=== PATIENT | female | born 1995 | race Caucasian/White ===

== ENCOUNTER 2022-07-28 05:55 | Inpatient (IN) | payer OTHER, MEDICAID, SELFPAY ==
[2022-07-28] VITALS (142 sets, daily range): BP systolic 68–135; BP diastolic 32–89; PULSE 30–172; RESP 18; TEMP 36.5–37.3; O2SAT 75–100; BMI 35.6
--- NOTE | 2022-07-28 05:55 | LDADM ---
This patient, Merced Peña, was admitted to Labor/Delivery/Recovery 108 on 07/28/22 at 05:55. Plans for labor, pain management and were discussed with patient. Patient/family oriented to hospital policies and general routines including ID bracelet, bed and alarms, visiting hours, pain management, procedures, bathroom and other care routines, personal items, smoking policy, room service/diet and guest tray routines, security routines, and visiting hours. Patient/Family are encouraged to report perceived risks to care and to ask questions if they do not understand what they are told or what they should do. See OBIX for further documentation.
[2022-07-28 06:56] LABS: Basophils Absolute Auto 0.1 K/mm3 (0.0-0.1); Basophils Percent Auto 0.4 % (0.2-1.2); Eosinophils Absolute Auto 0.1 K/mm3 (0-0.3); Eosinophils Percent Auto 0.8 % (0-4.4); Hematocrit 34.3 % (37.0-47.0); Immature Granulocyte Absolute 0.22 K/mm3 (0.00-0.031); Immature Granulocyte Percent A 1.6 % (0-0.5); Lymphocytes Absolute Auto 1.66 K/mm3 (0.9-3.2); Lymphocytes Percent Auto 11.9 % (18.3-44.2); Mean Corpuscular HGB Conc 32.1 g/dl (32-36); Mean Corpuscular Hemoglobin 27.8 pg (26-34); Mean Corpuscular Volume 86.6 fl (80-100); Mean Platelet Volume 10.3 fl (7.4-10.4); Monocytes Absolute Auto 0.9 K/mm3 (0.1-0.6); Monocytes Percent Auto 6.7 % (2.6-8.5); Neutrophils Percent Auto 78.6 % (45.5-73.1); Platelet Count Result 231 k/mm3 (150-375); Red Blood Count 3.96 M/mm3 (4.2-5.4); Red Cell Distribution Width 13.9 % (11.5-14.5)
[2022-07-28] MEDS: LACTATED RINGERS 1,000 ML 125 ML IV CONT ×3 (07:01→11:12)
[2022-07-28] MEDS: OXYTOCIN 30 UNITS/NS 500 ML 30 UNITS/500 ML BAG IV CONT (07:03)
--- NOTE | 2022-07-28 07:21 | WPDOBADMIT ---
Obstetrics - Admit Note Admission Note: record reviewed. No pertinent additions to the history and/or any subsequent changes in the physical findings that are not consistent with the expected course of the were found. IOL for cholestasis at 37 weeks, AROM small amount of clear odorless fluid, SVE /-2 Additions to the history and/or subsequent changes in the physical findings follow. None.
--- NOTE | 2022-07-28 10:05 | WPDANESEPPF ---
Anes - Initial Pre Proc Eval Date/Time: 07/28/22 10:05 Surgeon: Gorge Leger MD Pre Op Diagnosis: Induction of Labor Patient Data Age: 27 Gender: F Height: 1.68 m Weight: 100 kg Last Vital Signs Temp 36.6 C 07/28/22 09:46 Pulse 93 07/28/22 10:00 BP 117/65 07/28/22 10:00 O2 Del Method Room Air 07/28/22 07:38 Allergies Allergy/AdvReac Type Severity Reaction Status Date / Time No Known Allergies Allergy Verified 07/21/22 13:39 Home Medications Medication Instructions Recorded Confirmed Type prenat.vits,danyell,quv-uadb-zejru 1 tablet PO HS 07/21/22 07/21/22 History ursodiol 300 mg capsule 300 mg PO BID 07/21/22 07/21/22 History Laboratory Tests 07/28/22 07/28/22 07/28/22 06:44 06:44 06:44 WBC 14.0 K/mm3 H K/mm3 (4.5-10.0) RBC 3.96 M/mm3 L M/mm3 (4.2-5.4) Hgb 11.0 g/dL L g/dL (12.0-15.0) Hct 34.3 % L % (37.0-47.0) MCV 86.6 fl fl (80-100) MCH 27.8 pg pg (26-34) MCHC 32.1 g/dl g/dl (32-36) RDW 13.9 % % (11.5-14.5) Plt Count 231 k/mm3 k/mm3 (150-375) MPV 10.3 fl fl (7.4-10.4) Immature Gran % (Auto) 1.6 % H % (0-0.5) Neut % (Auto) 78.6 % H % (45.5-73.1) Lymph % (Auto) 11.9 % L % (18.3-44.2) Lane % (Auto) 6.7 % % (2.6-8.5) Eos % (Auto) 0.8 % % (0-4.4) Baso % (Auto) 0.4 % % (0.2-1.2) Lymph # (Auto) 1.66 K/mm3 K/mm3 (0.9-3.2) Lane # (Auto) 0.9 K/mm3 H K/mm3 (0.1-0.6) Eos # (Auto) 0.1 K/mm3 K/mm3 (0-0.3) Baso # (Auto) 0.1 K/mm3 K/mm3 (0.0-0.1) Abs Immat Gran (auto) 0.22 K/mm3 H K/mm3 (0.00-0.031) Absolute Neuts (auto) 11.0 K/mm3 H K/mm3 (1.3-6.7) Absolute Nucleated RBC 0.0 K/mm3 K/mm3 (0.0-0.012) Nucleated RBC % 0.0 % % (0.0-0.2) RPR Pending Blood Type O Positive Antibody Screen Negative Patient hx anesthesia problems: none Family hx anesthesia problems: none Results Review: All pre-operative results and documents have been reviewed as part of the pre-operative evaluation. [facility] Family History Family History (Updated 07/21/22 @ 13:42 by Doris Sharma RN) Other Patient denies significant medical history Social History Social History Smoking status: Never smoker Substance use: never Spiritual care concerns: No Anes - Eval Final PreProcedure Day of Procedure 07/28/22 10:05 Patient weight: overweight Heart: regular rate and rhythm Lungs: clear to auscultation and normal air movement Airway: Mallampati scale class II Neurological: alert and oriented Last oral intake: >/= 8 hours ASA classification: II Emergent: no Anesthetic plan: proceed Anesthesia type and monitoring: regional epidural Results Review: All pre-operative results and documents have been reviewed as part of the pre-operative evaluation. Informed Consent: The patient's anesthetic plan and its attendant risks and benefits were discussed with the patient/family/POA. Questions were solicited and answers provided to the satisfaction of the patient/family/POA.
--- NOTE | 2022-07-28 17:03 | P.PCNOB_ITS ---
OB - Delivery Note Procedure Delivery date: 07/28/22 Procedure: vaginal delivery Events: Other (cholestasis) Induction method: AROM and Per Pitocin Protocol Delivery monitor: External FHT, External Uterine and Internal Uterine Route of delivery: Episiotomy description: None Laceration Description: None Specimen: Yes Quantitative Blood Loss (ml): 125 Disposition: Floor [place] Baby Date of : 07/28/22 Time of : 16:52 Weeks of gestation at delivery: 37 Weight (pounds): 6 Weight (ounces): 7 presentation: vertex position: Right Occiput Anterior Placenta delivery description: Spontaneous Cord Vessel Description: 3 Vessels, Clamped/Cut and Around Extremity (foot x 1 tight, loosened) score one minute: 8 score five minutes: 9 Narrative: mother and baby skin to skin in stable condition
[2022-07-28 17:12] LABS: Rapid Plasma Reagin Non-Reactive (NonReactive)
[2022-07-28] MEDS: ACETAMINOPHEN 325 MG TABLET 650 MG PO (18:05)
[2022-07-28] MEDS: WITCH HAZEL 40 PADS 1 PAD TOPICAL (19:32)
--- NOTE | 2022-07-28 20:00 | OBPPTRN ---
Patient transferred to post room # 282 via ( wheelchair ). Support person present. Oriented to unit, room, information board, rooming in, admission packet and security measures. Patient verbalizes understanding.
[2022-07-28] MEDS: IBUPROFEN 600 MG TABLET PO (20:14)
[2022-07-29] VITALS: BP 126/78; PULSE 92; RESP 18; TEMP 36.8; O2SAT 100
[2022-07-29] MEDS: ACETAMINOPHEN 325 MG TABLET 650 MG PO (03:36)
[2022-07-29 03:49] LABS: Hematocrit 32.2 % (37.0-47.0); Hemoglobin 10.3 g/dL (12.0-15.0)
[2022-07-29 04:00] VITALS: BP 126/78; PULSE 92; RESP 18; TEMP 36.3; O2SAT 100
[2022-07-29 06:46] VITALS: BP 117/78; PULSE 94; RESP 18; TEMP 36.3; O2SAT 100
[2022-07-29 06:48] VITALS: PULSE 94; RESP 18; O2SAT 100
[2022-07-29] MEDS: ursodioL 300 MG CAPSULE PO (07:07)
[2022-07-29] MEDS: IBUPROFEN 600 MG TABLET PO (07:07)
[2022-07-29] MEDS: MULTIVIT/MIN/PREN/FOL AC/IRON TABLET 1 TAB PO (07:07)
--- NOTE | 2022-07-29 08:16 | PM.OBPNVD ---
OB - PN: Subj Subjective Date/time seen: 07/29/22 08:16 Patient comments: no complaints, pain well controlled, incisional pain, tolerating diet and flatus present OB - PN: Obj Data Labs CBC & Chem 7: 07/29/22 03:43 Labs: Laboratory Results - last 24 hr 07/28/22 07/29/22 06:44 03:43 Hgb 10.3 L Hct 32.2 L RPR Non-reactive OB - PN A/P Plan day: 1 Plan: routine care Comments: No problems, routine care, to d/c Time Spent With Patient Time: Total time spent is greater than 50% in coordination of care (as documented) at patient's floor/unit and/or counseling patient: Exam Const: General: comfortable, no acute distress and alert Resp: Effort & Inspection: normal respiratory effort Auscultation: no crackles, no rales and no rhonchi Cardio: Rate: regular rate Heart sounds: no click, no murmurs and no rubs GI: Inspection: non-distended GI Palp: No Tenderness to palpation present (GI) Auscultation: normal bowel sounds Other: Incision - CDI Extrem: General: normal to inspection, no pedal edema and no calf tenderness
--- NOTE | 2022-07-29 08:19 | PM.OBDSVD ---
DS: Admitting Diagnosis Discharge Date 07/29/22 Admitting Diagnosis term , growth restriction OB - DS: Summary OB Procedures : NST and Ultrasound OB Procedures Intrapartum: Spontaneous Vag Delivery OB Procedures: : None Time Spent with Patient Time attestation: Total time spent providing and/or coordinating discharge services: DS: Data Data Completed and Pending Pending studies at discharge: Pending at discharge 07/28/22 16:57 Surgical [PTH] Routine Labs on day of discharge: Labs from last 24 hours 07/29/22 07/28/22 03:43 06:44 Hgb 10.3 L Hct 32.2 L RPR Non-reactive Discharge Plan Discharge Discharging Clinician: Gorge Leger Patient Disposition: Home, Self-Care Activity: pelvic rest Diet: regular Patient Instructions: Antibiotic Form Stand Alone Forms: General Discharge Information Follow-up/Referrals: Gorge Leger MD [Physician] - Discharge Medications: Continued #2 Tablet 1 tablet PO HS Discontinued ursodiol 300 mg Capsule 300 mg PO BID Date of admission: 07/28/22 05:55 Primary Care Provider: UNKNOWN,DOCTOR Admitting Provider: Gorge Leger Attending physician on admission: Gorge Leger Condition: Stable
--- NOTE | 2022-07-29 08:49 | PC.NURSE ---
Per Dr. Leger, no need for patient to follow-up at . Baby was transferred to [facility]. Pt will be seen at [address] Leger's office.
--- NOTE | 2022-07-29 08:57 | PC.NURSE ---
Patient was given the opportunity to view the discharge video Mother & Baby Care, The First Two Weeks and to ask questions. Patient declined viewing the video and has been given the mother/baby guide for home reference.
== END 2022-07-29 09:10 | disposition home or self-care (01) | DRG 805 ==
LOC: ANHLDR 06:01 → ANHOB2 20:05
PROVIDERS: Advanced Practice Midwife; Admitting Provider Obstetrics & Gynecology; Visit Provider Obstetrics & Gynecology
DX: O26.62 Liver and biliary tract disorders in childbirth (principal); K83.1 Obstruction of bile duct; Z37.0 Single live birth; O69.2XX0 Labor and delivery complicated by other cord entanglement, with compression, not applicable or unspecified; O76 Abnormality in fetal heart rate and rhythm complicating labor and delivery; Z3A.37 37 weeks gestation of pregnancy
CPT/HCPCS: 36415; 85014; 85018; 85025; 86592; 86850; 86900; 86901; 88307; A9270; J2590; J2795; J7120

== ENCOUNTER 2025-09-07 08:43 | Inpatient (IN) | payer BC, SELFPAY ==
[2025-09-07] VITALS (13 sets, daily range): BP systolic 103–139; BP diastolic 48–96; PULSE 98–121; RESP 14–97; TEMP 36.3–37.4; O2SAT 95–100
--- NOTE | ~2025-09-07 | CT_ITS ---
EXAM/PROCEDURE: CT pelvis w con HISTORY: L perirectal abscess COMPARISON: None available. TECHNIQUE: IV contrast enhanced CT of the pelvis FINDINGS: Complex peripherally enhancing fluid accumulation in the left perianal region measures 5.6 x 5.5 x 3.2 cm in the anteroposterior by cephalocaudal by transverse dimension. Moderate amount of adjacent infiltrative or strandy changes. Tiny foci of air are also seen in the superior aspect, for example image 94 series 3. Intrapelvic contents appear within normal limits. The bones appear intact. No cortical erosion to confirm osteomyelitis. No other abscess seen. IMPRESSION: 5.6 x 5.5 x 3.2 cm left perianal abscess with tiny foci of air which may represent gas-forming infection. Adjacent infiltrative changes consistent with accompanying cellulitis. Reviewed, dictated and finalized at location A. [facility] [employer] IMPRESSION: 5.6 x 5.5 x 3.2 cm left perianal abscess with tiny foci of air whic h may represent gas-forming infection. Adjacent infiltrative changes consistent with accompanying cellulitis.
[2025-09-07 10:39] LABS: Hematocrit 37.8 % (37.0-47.0); Hemoglobin 12.2 g/dL (12.0-15.0); Immature Granulocyte Percent A 1.5 % (0-0.5); Lymphocytes Absolute Auto 2.51 K/mm3 (0.9-3.2); Mean Corpuscular HGB Conc 32.3 g/dl (32-36); Mean Corpuscular Hemoglobin 31.0 pg (26-34); Mean Corpuscular Volume 95.9 fl (80-100); Nucleated Red Blood Cells Absolute Auto 0.000 K/mm3 (0.0-0.012); Nucleated Red Blood Cells Perc 0.0 % (0.0-0.2); Platelet Count Result 382 k/mm3 (150-375); Red Blood Count 3.94 M/mm3 (4.2-5.4); White Blood Count 22.0 K/mm3 (4.5-10.0)
[2025-09-07 10:50] LABS: INR 1.0; Partial Thromboplastin Time 23.8 Seconds (22.3-36.8); Prothrombin Time 13.1 Seconds (11.1-14.7)
[2025-09-07 10:58] LABS: Alanine Aminotransferase 20 U/L (6-35); Albumin Level 3.9 g/dL (3.5-5.1); Alkaline Phosphatase 138 U/L (38-126); Anion Gap 8 mmol/L (4-12); Aspartate Amino Transferase 34 U/L (14-36); Bilirubin,Total 0.5 mg/dL (0.2-1.3); Blood Urea Nitrogen 9 mg/dL (7-17); CRP 6.1 mg/dL (<1.0); Calcium 8.8 mg/dL (8.4-10.2); Carbon Dioxide 27 mmol/L (22-30); Chloride 102 mmol/L (98-107); Estimated CRCL calculation 106 ml/min; Estimated Glomerular Filt Rate > 60; Glucose 104 mg/dL (65-110); Potassium 3.6 mmol/L (3.4-5.0); Sodium 137 mmol/L (137-145); Total Protein 7.3 g/dL (6.3-8.2)
--- NOTE | 2025-09-07 11:22 | ED_ITS ---
HPI - Skin/Abscess/Foreign Bdy General Chief complaint: Skin/Abscess/Foreign Body <MICHELA Penny Last Filed: 09/07/25 16:52> Stated complaint: abscess to buttock <MICHELA Penny Last Filed: 09/07/25 16:52> Time Seen by Provider: 09/07/25 09:06 <MICHELA Penny Last Filed: 09/07/25 16:52> Source: patient <MICHELA Penny Last Filed: 09/07/25 16:52> Mode of arrival: ambulatory <MICHELA Penny Last Filed: 09/07/25 16:52> Limitations: no limitations <MICHELA Penny Last Filed: 09/07/25 16:52> History of Present Illness HPI narrative: Patient is a 30-year-old female who presents the ED with report of an abscess to her left buttock. Patient reports she has had an abscess to her last lower buttock/perirectal region for the past 1 month. States over the past week it has increased in size/pain. Has been intermittently draining. She believes it has been draining from her anus. She saw her OBGYN for this and was initially started on Bactrim. Finished a week course of this but denied improvement. Was then started on amoxicillin. Has been on this for 3 days, but denies improvement with this either. Denies fevers. <MICHELA Penny Last Filed: 09/07/25 16:52> Related Data Home medications: Home Medications ?Medication ?Instructions ?Recorded ?Confirmed ?Last Taken ?Type No Home Medications 09/07/25 09/07/25 U nknown History <MICHELA Penny Last Filed: 09/07/25 16:52> Allergies/Adverse reactions: Allergies Allergy/AdvReac Type Severity Reaction Status Date / Time ceftriaxone Allergy Mild eye Verified 09/07/25 16:43 swelling <MICHELA Penny Last Filed: 09/07/25 16:52> Review of Systems 2 Review of Systems: All systems reviewed & are unremarkable except as noted in HPI. <Beulah Arboleda PA-C - Last Filed: 09/07/25 16:52> All systems reviewed & are unremarkable except as noted in HPI and below < Beulah Arboleda PA-C - Last Filed: 09/07/25 16:52> PMFSH Past Medical History Medical History: Medical History (Updated 09/07/25 @ 16:52 by Beulah Arboleda PA-C) Smoker Obesity History of IBS <Beulah Arboleda PA-C - Last Filed: 09/07/25 16:52> Surgical History Surgical History: Surgical History No pertinent past surgical history <Beulah Arboleda PA-C - Last Filed: 09/07/25 16:52> Family History Family History: Family History Other Patient denies significant medical history <Beulah Arboleda PA-C - Last Filed: 09/07/25 16:52> Social History Social History: Social History Smoking status: Current every day smoker Tobacco type: e-cigarettes/vaping Alcohol intake: current Drinks per week: 14 Substance use: current Substance use type: marijuana Lack of Transportation: No Lack of Food: Never True Current Housing: I Have Housing Concerned About Future Housing: No Difficulty Paying Gas/Electric Bills: No Difficulty Paying for Meds: No Currently Unemployed: No Education: Associate Degree Difficulty w/ Childcare or Family Care: No Spiritual care concerns: No <Beulah Arboleda PA-C - Last Filed: 09/07/25 16:52> Exam 2 Narrative: GENERAL: Well appearing, obese with BMI of 30.4, non-toxic, in no acute distress. HEAD: Normocephalic, atraumatic. RESPIRATORY: Airway patent, respirations nonlabored. Clear to auscultation bilaterally, no rales, rhonchi, wheezing. CARDIOVASCULAR: Tachycardic with regular rhythm without murmurs, rubs, or gallops. RECTAL: Diffuse induration to L perirectal region/L inferior buttock with focal TTP/erythema. No appreciable localized fluctuance or pustular head. Chafing/raw/peeling skin along medial gluteal cleft. No necrosis or vesicular lesions. No external hemorrhoids. Normal rectal tone. MUSCULOSKELETAL: Moves all extremities. No gross deformities. SKIN: Warm, dry, normal color. NEURO: A&O X3. Speech clear. Cranial nerves II-XII grossly intact. Steady gait. No ataxic movements. PSYCHIATRIC: Appropriate mood and affect. Normal interaction. <Beulah Arboleda PA-C - Last Filed: 09/07/25 16:52> Course AUTOMOTIVE DRIVABILITY TECHNICIAN/PA Physician Supervision This visit was performed by both a physician and an APC. I performed all aspects of the MDM as documented. <Radames Harper MD - Last Filed: 09/07/25 18:38> Vital Signs Vital signs: Vital Signs Temperature 97.4 F L 09/07/25 08:49 Pulse Rate 117 H 09/07/25 08:49 Respiratory Rate 14 09/07/25 08:49 Blood Pressure 139/96 H 09/07/25 08:49 Pulse Oximetry 95 09/07/25 08:49 Oxygen Delivery Room Air 09/07/25 08:49 Temperature 98.5 F 09/07/25 17:30 Pulse Rate 110 H 09/07/25 17:30 Respiratory Rate 18 09/07/25 17:30 Blood Pressure 120/75 09/07/25 17:30 Pulse Oximetry 100 09/07/25 17:30 Oxygen Delivery Room Air 09/07/25 16:11 Oxygen Flow Rate 8 09/07/25 15:30 <Beulah Arboleda PA-C - Last Filed: 09/07/25 16:52> Vital Signs Temperature 97.4 F L 09/07/25 08:49 Pulse Rate 117 H 09/07/25 08:49 Respiratory Rate 14 09/07/25 08:49 Blood Pressure 139/96 H 09/07/25 08:49 Pulse Oximetry 95 09/07/25 08:49 Oxygen Delivery Room Air 09/07/25 08:49 Temperature 98.5 F 09/07/25 17:30 Pulse Rate 110 H 09/07/25 17:30 Respiratory Rate 18 09/07/25 17:30 Blood Pressure 120/75 09/07/25 17:30 Pulse Oximetry 100 09/07/25 17:30 Oxygen Delivery Room Air 09/07/25 16:11 Oxygen Flow Rate 8 09/07/25 15:30 <Radames Harper MD - Last Filed: 09/07/25 18:38> MDM - Skin/Abscess/Foreign Bdy MDM Narrative Medical decision making narrative: Patient presented to ED with concern for perirectal abscess for the past 1 month, worsening over the past 1 week. Has been on 2 different antibiotics without improvement. Patient tachycardic upon arrival. Afebrile. Mildly uncomfortable appearing[place] [address]. Neutrophil predominance. No bandemia. H&H is stable. CMP unremarkable. Lactic acid 1.0. CRP elevated. CT of pelvis was obtained: 5.6 x 5.5 x 3.2 cm left perianal abscess with tiny foci of air which may represent gas-forming infection. Adjacent infiltrative changes consistent with accompanying cellulitis. Will discuss with General surgery. Patient meeting criteria for sepsis. Started on Rocephin and Flagyl per ED antibiotic stewardship. [id number] - [facility] with surgery down in the ED to see patient. Discussed case with Dr. Richardson, will take to the OR later today for drainage of abscess. Recommended admission overnight for IV abx. Admitted under his service. Patient is in agreement w/ this plan and need for admission. Patient did experience some itching and swelling of her eyes after Rocephin administration. She is unsure if she has ever had cephalosporins in the past. She has tolerated penicillins. There is no diffuse rash or urticaria. She is denying any respiratory complaints. Denies SOB. No signs of anaphylaxis. Given Benadryl. Will change to Zosyn. Surgery team updated on plan. <Beulah Arboleda PA-C - Last Filed: 09/07/25 16:52> Medical Records Attestation: I reviewed the patient's medical records. <Beulah Arboleda PA-C - Last Filed: 09/07/25 16:52> Lab Data Attestation: I reviewed the patient's lab results. <Beulah Arboleda PA-C - Last Filed: 09/07/25 16:52> Result diagrams: 09/07/25 10:29 09/07/25 10:29 <Beulah Arboleda PA-C - Last Filed: 09/07/25 16:52> Labs: Lab Results 09/07/25 09/07/25 Range/Units 10:29 11:23 WBC 22.0 H (4.5-10.0) K/mm3 RBC 3.94 L (4.2-5.4) M/mm3 Hgb 12.2 (12.0-15.0) g/dL Hct 37.8 (37.0-47.0) % MCV 95.9 (80-100) fl MCH 31.0 (26-34) pg MCHC 32.3 (32-36) g/dl RDW 12.1 (11.5-14.5) % Plt Count 382 H D (150-375) k/mm3 MPV 8.4 (7.4-10.4) fl Immature Gran % (Auto) 1.5 H (0-0.5) % Neut % (Auto) 78.2 H (45.5-73.1) % Lymph % (Auto) 11.4 L (18.3-44.2) % [place] % (Auto) 7.9 (2.6-8.5) % Eos % (Auto) 0.5 (0-4.4) % Baso % (Auto) 0.5 (0.2-1.2) % Lymph # (Auto) 2.51 (0.9-3.2) K/mm3 [place] # (Auto) 1.8 H (0.1-0.6) K/mm3 Eos # (Auto) 0.1 (0-0.3) K/mm3 Baso # (Auto) 0.1 (0.0-0.1) K/mm3 Abs Immat Gran (auto) 0.33 H (0.00-0.031) K/mm3 Absolute Neuts (auto) 17.2 H (1.3-6.7) K/mm3 Absolute Nucleated RBC 0.000 (0.0-0.012) K/mm3 Nucleated RBC % 0.0 (0.0-0.2) % PT 13.1 (11.1-14.7) Seconds INR 1.0 APTT 23.8 (22.3-36.8) Seconds Sodium 137 (137-145) mmol/L Potassium 3.6 (3.4-5.0) mmol/L Chloride 102 (98-107) mmol/L Carbon Dioxide 27 (22-30) mmol/L Anion Gap 8 (4-12) mmol/L BUN 9 (7-17) mg/dL Creatinine 0.70 (0.7-1.0) mg/dL Estim Creat Clear Calc 106 ml/min Estimated GFR > 60 (59 - ) Glucose 104 (65-110) mg/dL Lactic Acid 1.0 (0.7-2.0) mmol/L Calcium 8.8 (8.4-10.2) mg/dL Total Bilirubin 0.5 (0.2-1.3) mg/dL AST 34 (14-36) U/L ALT 20 (6-35) U/L Alkaline Phosphatase 138 H (38-126) U/L C-Reactive Protein 6.1 H (<1.0) mg/dL Total Protein 7.3 (6.3-8.2) g/dL Albumin 3.9 (3.5-5.1) g/dL POC Urine HCG, Qual Negative (Negative) <Beulah Arboleda PA-C - Last Filed: 09/07/25 16:52> Lab Results 09/07/25 09/07/25 Range/Units 10:29 11:23 WBC 22.0 H (4.5-10.0) K/mm3 RBC 3.94 L (4.2-5.4) M/mm3 Hgb 12.2 (12.0-15.0) g/dL Hct 37.8 (37.0-47.0) % MCV 95.9 (80-100) fl MCH 31.0 (26-34) pg MCHC 32.3 (32-36) g/dl RDW 12.1 (11.5-14.5) % Plt Count 382 H D (150-375) k/mm3 MPV 8.4 (7.4-10.4) fl Immature Gran % (Auto) 1.5 H (0-0.5) % Neut % (Auto) 78.2 H (45.5-73.1) % Lymph % (Auto) 11.4 L (18.3-44.2) % [place] % (Auto) 7.9 (2.6-8.5) % Eos % (Auto) 0.5 (0-4.4) % Baso % (Auto) 0.5 (0.2-1.2) % Lymph # (Auto) 2.51 (0.9-3.2) K/mm3 [place] # (Auto) 1.8 H (0.1-0.6) K/mm3 Eos # (Auto) 0.1 (0-0.3) K/mm3 Baso # (Auto) 0.1 (0.0-0.1) K/mm3 Abs Immat Gran (auto) 0.33 H (0.00-0.031) K/mm3 Absolute Neuts (auto) 17.2 H (1.3-6.7) K/mm3 Absolute Nucleated RBC 0.000 (0.0-0.012) K/mm3 Nucleated RBC % 0.0 (0.0-0.2) % PT 13.1 (11.1-14.7) Seconds INR 1.0 APTT 23.8 (22.3-36.8) Seconds Sodium 137 (137-145) mmol/L Potassium 3.6 (3.4-5.0) mmol/L Chloride 102 (98-107) mmol/L Carbon Dioxide 27 (22-30) mmol/L Anion Gap 8 (4-12) mmol/L BUN 9 (7-17) mg/dL Creatinine 0.70 (0.7-1.0) mg/dL Estim Creat Clear Calc 106 ml/min Estimated GFR > 60 (59 - ) Glucose 104 (65-110) mg/dL Lactic Acid 1.0 (0.7-2.0) mmol/L Calcium 8.8 (8.4-10.2) mg/dL Total Bilirubin 0.5 (0.2-1.3) mg/dL AST 34 (14-36) U/L ALT 20 (6-35) U/L Alkaline Phosphatase 138 H (38-126) U/L C-Reactive Protein 6.1 H (<1.0) mg/dL Total Protein 7.3 (6.3-8.2) g/dL Albumin 3.9 (3.5-5.1) g/dL POC Urine HCG, Qual Negative (Negative) <Radames Harper MD - Last Filed: 09/07/25 18:38> Imaging Data Attestation: I personally reviewed and interpreted this imaging study as follows: < Beulah Arboleda PA-C - Last Filed: 09/07/25 16:52> Radiologist's impression: ITS Impressions Pelvis CT 09/07/25 11:42 IMPRESSION: 5.6 x 5.5 x 3.2 cm left perianal abscess with tiny foci of air which may represent gas-forming infection. Adjacent infiltrative changes consistent with accompanying cellulitis. <Beulah Arboleda PA-C - Last Filed: 09/07/25 16:52> Discharge Plan Discharge Clinical Impression: Perianal abscess Sepsis Qualifiers: Sepsis type: sepsis due to unspecified organism Sepsis acute organ dysfunction status: unspecified Qualified Code(s): A41.9 - Sepsis, unspecified organism <Beulah Arboleda PA-C - Last Filed: 09/07/25 16:52> Patient Disposition: Still a Patient <Beulah Arboleda PA-C - Last Filed: 09/07/25 16:52> Condition: Stable <Beulah Arboleda PA-C - Last Filed: 09/07/25 16:52>
[2025-09-07] MEDS: MORPHINE SULFATE (*CRX) 4 MG/ML INJ IV PUSH (11:26)
[2025-09-07 11:27] LABS: BEDSIDEPREGUCG Negative (Negative)
[2025-09-07] MEDS: ONDANSETRON INJ 4 MG/2 ML VIAL IV PUSH ×2 (11:27→14:26)
[2025-09-07] MEDS: cefTRIAXone 1 GM in SODIUM CHLORIDE 0.9% IV 50 ML 100 ML IVPB (12:28)
--- NOTE | 2025-09-07 13:10 | P.HP_ITS ---
H&P: HPI History of Present Illness Date/Time: 09/07/25 13:10 Chief Complaint: Perirectal pain Narrative: This is a 30-year-old female who presented to the ED with complaints of perirectal pain. She noticed a small lump on her left buttock near her perianal region about a month ago. Over the next few weeks, this grew in size and became painful. She was evaluated by her OBGYN who prescribed Bactrim x 1 week. She did not notice any improvements. She states they did some type of skin swab and switched her to amoxicillin, which she has now been on for 3-4 days. The swelling and pain has actually gotten worse on the amoxicillin. She has also noticed intermittent rectal drainage that is hampton/bloody over the past few weeks. She feels relief in the pain and swelling immediately after this occurs. Denies any fever or chills. Denies a history of IBD or abscesses in the past. Workup in the ED showed leukocytosis with a WBC count of 22,[address] evidence of 5.6 cm perianal abscess with a tiny foci of air which may represent gas-forming infection and adjacent infiltrative changes consistent with accompanying cellulitis. She is now seen in the ED for surgical evaluation at the request of the ED provider. Review of Systems Review of Systems: All systems reviewed & are unremarkable except as noted in HPI and below PMFSH Past Medical History Medical History History of IBS Surgical History Surgical History No pertinent past surgical history Family History Family History Other Patient denies significant medical history Social History Social History Smoking status: Current every day smoker Tobacco type: e-cigarettes/vaping Alcohol intake: never Substance use: never Spiritual care concerns: No Meds Home Medications and Allergies Home Medications ?Medication ?Instructions ?Recorded ?Confirmed ?Type prenat.vits,danyell,[id number] 1 tablet PO HS 07/21/22 07/21/22 History Allergies Allergy/AdvReac Type Severity Reaction Status Date / Time ceftriaxone Allergy Mild eye Verified 09/07/25 13:09 swelling Vital Signs Vital Signs - 24 hr 09/07/25 08:49 Temperature 97.4 F L Pulse Rate 117 H Respiratory Rate 14 Blood Pressure 139/96 H Pulse Oximetry 95 Oxygen Delivery Room Air Exam Const: General: no acute distress and uncomfortable (d/t perirectal pain) Nutritional Appearance: average body habitus Orientation/consciousness: patient oriented x3 HENMT: Head: normocephalic and atraumatic Ears: hearing grossly normal bilaterally Mouth: Yes moist mucous membranes Eyes: General: appearance normal, both eyes and all related structures Pupils: Equal, round and reactive pupils present Neck: Neck: normal visual inspection and full ROM Resp: Effort & Inspection: no respiratory distress Auscultation: clear to auscultation bilaterally Cardio: Rate: tachycardic Rhythm: regular rhythm Peripheral pulses: Peripheral pulses 2+ throughout GI: Inspection: non-distended GI Palp: Yes Soft to palpation, No Tenderness to palpation present (GI), No Guarding due to palpation present (GI), Yes No hepatosplenomegaly present and No Rebound tenderness present Auscultation: normal bowel sounds Other: Perirectal swelling/induration and erythema on the left extending to the left buttock and anteriorly towards the perineum but no involving the external genitalia. No open wounds or rectal drainage noted. There is an anal skin tag. She is exquisitely tender over the abscess with a central area of fluctuance. Digital rectal exam deferred due to pain. Skin: General skin exam: normal color Neuro: General: moves all extremities and no focal motor deficits Speech: normal speech Motor exam (neuro): 5/5 motor strength present throughout Extrem: General: normal to inspection and no edema Psych: Mental Status: mental status grossly normal Attitude: cooperative Insight: Good insight present (Psych) Judgement: Good judgement present (Psych) H&P: Results Labs Labs: Short CBC 09/07/25 Range/Units 10:29 WBC 22.0 H (4.5-10.0) K/mm3 Hgb 12.2 (12.0-15.0) g/dL Hct 37.8 (37.0-47.0) % Plt Count 382 H D (150-375) k/mm3 BMP 09/07/25 10:29 Sodium 137 Potassium 3.6 Chloride 102 Carbon Dioxide 27 BUN 9 Creatinine 0.70 Glucose 104 Calcium 8.8 Liver Function 09/07/25 Range/Units 10:29 Total Bilirubin 0.5 (0.2-1.3) mg/dL AST 34 (14-36) U/L ALT 20 (6-35) U/L Alkaline Phosphatase 138 H (38-126) U/L Albumin 3.9 (3.5-5.1) g/dL Imaging CT scan - pelvis: Radiologist's impression: ITS Impressions Pelvis CT 09/07/25 11:42 IMPRESSION: 5.6 x 5.5 x 3.2 cm left perianal abscess with tiny foci of air which may represent gas-forming infection. Adjacent infiltrative changes consistent with accompanying cellulitis. Assessment and Plan Assessment and plan (1) Perianal abscess: Code(s): K61.0 - Anal abscess Status: Acute Assessment and Plan: * Patient presents with 1 month of progressive perirectal swelling and pain with failed outpatient antibiotic treatment. This is her first episode. CT scan showed a 5.6 cm left perianal abscess with adjacent cellulitic changes. Patient is extremely tender and has a difficult time even tolerating my bedside exam. I discussed the case with Dr. Richardson. We would recommend proceeding with incision and drainage perianal abscess and possible rectal EUA by Dr. Richardson under anesthesia. Description of the procedure, risks, benefits, alternatives, and expected postoperative wound care were discussed with the patient in detail. She agrees to proceed. Will keep her NPO and proceed to the OR. Continue IV antibiotics. (2) SIRS (systemic inflammatory response syndrome): Code(s): R65.10 - Systemic inflammatory response syndrome (SIRS) of non-infectious origin without acute organ dysfunction Status: Acute Assessment and Plan: * Leukocytosis and tachycardia in the ER. Secondary to perianal abscess. Blood cx pending. Continue IV antibiotics. Proceed to the OR for source control. (3) Vapes nicotine containing substance: Code(s): Z72.0 - Tobacco use Status: Acute Assessment and Plan: * Recommended cessation Plan I have discussed the patient's case and plan of care with Dr. Richardson.
[2025-09-07] MEDS: PIPERACILLIN/TAZOBACTAM SOD 3.375 GM in SODIUM CHLORIDE 0.9% IV 50 ML 100 ML IVPB ×2 (14:10→21:23)
--- NOTE | 2025-09-07 14:17 | WPDANESEPPF ---
Anes - Initial Pre Proc Eval Procedure: Operation Date: 09/07/25 14:45 Proposed Procedures p Incision And Drainage Devika-Rectal Abscess - Terese Richardson MD Date/Time: 09/07/25 14:17 Pre Op Diagnosis: abscess to buttock Patient Data Age: 30 Gender: F Height: 1.65 m Weight: 82.9 kg Last Vital Signs Temp 37.2 C 09/07/25 13:32 Pulse 100 09/07/25 13:32 Resp 15 09/07/25 13:32 BP 129/90 09/07/25 13:32 Pulse Ox 100 09/07/25 13:32 O2 Del Method Room Air 09/07/25 08:49 Allergies Allergy/AdvReac Type Severity Reaction Status Date / Time ceftriaxone Allergy Mild eye Verified 09/07/25 13:09 swelling Home Medications ?Medication ?Instructions ?Recorded ?Confirmed ?Type prenat.vits,danyell,pck-[id number] 1 tablet PO HS 07/21/22 07/21/22 History Laboratory Tests 09/07/25 09/07/25 10:29 11:23 WBC 22.0 H K/mm3 (4.5-10.0) RBC 3.94 L M/mm3 (4.2-5.4) Hgb 12.2 g/dL (12.0-15.0) Hct 37.8 % (37.0-47.0) MCV 95.9 fl (80-100) MCH 31.0 pg (26-34) MCHC 32.3 g/dl (32-36) RDW 12.1 % (11.5-14.5) Plt Count 382 H D k/mm3 (150-375) MPV 8.4 fl (7.4-10.4) Immature Gran % (Auto) 1.5 H % (0-0.5) Neut % (Auto) 78.2 H % (45.5-73.1) Lymph % (Auto) 11.4 L % (18.3-44.2) [place] % (Auto) 7.9 % (2.6-8.5) Eos % (Auto) 0.5 % (0-4.4) Baso % (Auto) 0.5 % (0.2-1.2) Lymph # (Auto) 2.51 K/mm3 (0.9-3.2) [place] # (Auto) 1.8 H K/mm3 (0.1-0.6) Eos # (Auto) 0.1 K/mm3 (0-0.3) Baso # (Auto) 0.1 K/mm3 (0.0-0.1) Abs Immat Gran (auto) 0.33 H K/mm3 (0.00-0.031) Absolute Neuts (auto) 17.2 H K/mm3 (1.3-6.7) Absolute Nucleated RBC 0.000 K/mm3 (0.0-0.012) Nucleated RBC % 0.0 % (0.0-0.2) PT 13.1 Seconds (11.1-14.7) INR 1.0 APTT 23.8 Seconds (22.3-36.8) Sodium 137 mmol/L (137-145) Potassium 3.6 mmol/L (3.4-5.0) Chloride 102 mmol/L (98-107) Carbon Dioxide 27 mmol/L (22-30) Anion Gap 8 mmol/L (4-12) BUN 9 mg/dL (7-17) Creatinine 0.70 mg/dL (0.7-1.0) Estim Creat Clear Calc 106 ml/min Estimated GFR > 60 (59 - ) Glucose 104 mg/dL (65-110) Lactic Acid 1.0 mmol/L (0.7-2.0) Calcium 8.8 mg/dL (8.4-10.2) Total Bilirubin 0.5 mg/dL (0.2-1.3) AST 34 U/L (14-36) ALT 20 U/L (6-35) Alkaline Phosphatase 138 H U/L (38-126) C-Reactive Protein 6.1 H mg/dL (<1.0) Total Protein 7.3 g/dL (6.3-8.2) Albumin 3.9 g/dL (3.5-5.1) POC Urine HCG, Qual Negative (Negative) Patient hx anesthesia problems: none Family hx anesthesia problems: none Results Review: All pre-operative results and documents have been reviewed as part of the pre-operative evaluation. [facility] Past Medical History Medical History (Updated 09/07/25 @ 14:18 by Darryl Chowdary MD) Smoker Obesity History of IBS Surgical History Surgical History No pertinent past surgical history Family History Family History Other Patient denies significant medical history Social History Social History Smoking status: Current every day smoker Tobacco type: e-cigarettes/vaping Alcohol intake: never Substance use: never Spiritual care concerns: No Anes - Eval Final PreProcedure Day of Procedure 09/07/25 14:17 Patient weight: obese Heart: regular rate and rhythm Lungs: clear to auscultation Airway: Mallampati scale class II Neurological: alert and oriented Last oral intake: >/= 8 hours ASA classification: II Emergent: no Anesthetic plan: proceed Anesthesia type and monitoring: general ETT and standard monitoring Results Review: All pre-operative results and documents have been reviewed as part of the pre-operative evaluation. Informed Consent: The patient's anesthetic plan and its attendant risks and benefits were discussed with the patient/family/POA. Questions were solicited and answers provided to the satisfaction of the patient/family/POA.
[2025-09-07] MEDS: FAMOTIDINE 20 MG/2 ML VIAL IV PUSH (14:26)
--- NOTE | 2025-09-07 14:39 | WPDHPUPDATE1 ---
History and Physical Update Update Date/Time: 09/07/25 14:39 History and Physical has been reviewed, including an updated exam of the patient. There are NO changes in the patient's condition. Risks, benefits, and alternatives have been discussed and questions answered. Patient agrees to proceed with procedure.
[2025-09-07] MEDS: BUPIVACAINE/EPINEPHRINE 0.5% 30 ML VIAL 20 ML INFILTRATE (14:50)
[2025-09-07] MEDS: LACTATED RINGERS 1,000 ML 30 ML IV CONT (15:18)
[2025-09-07] MEDS: fentaNYL CITRATE INJ (*CRX) 100 MCG/2 ML VIAL 25 MCG IV PUSH ×4 (15:25→16:13)
--- NOTE | 2025-09-07 15:29 | W.PM.PROC2 ---
Procedure Note - Detailed Date of Procedure 09/07/25 Pre-op Diagnosis Left perirectal abscess Post-op Diagnosis Same Procedure Performed exam under anesthesia, complex incision and drainage left perirectal abscess measuring 6 x 5 x 10 cm Surgeon Terese Richardson MD Relations Director [facility] Anesthesia General and Local Indications 30-year-old female presenting to the emergency department complaining of severe left perirectal pain. Workup, including imaging, significant for a large left perirectal abscess. Findings Large left perirectal abscess measuring 6 x 5 x 10 cm Description of Procedure The patient was taken the operating room and placed in the modified lithotomy position. After adequate induction of general anesthesia, the patient was prepped and draped in the normal sterile fashion. A time-out was then done to verify the patient's identity, as well as procedure being performed. We began by localizing the area in and around this large left perirectal abscess. At this point an exam under anesthesia was performed. I 1st did a digital rectal exam. No obvious fistula tract or drainage was noted in the anal canal. I then placed an anoscope into the anal canal and examined the rectum and anal canal. Again no obvious drainage or fistulous tract was noted. We then opened the left perirectal abscess over the most fluctuant area of the abscess with a 15 blade scalpel. A large amount of purulent drainage was noted at this point. Sterile cultures were obtained. We then used a hemostat to bluntly dissect around this cavity. Once the cavity was completely opened and drained, it measured 6 x 5 x 10 cm. The 10 cm tunnel tract posteriorly. We then placed further local anesthetic and copiously washed out the cavity. 1 in iodoform was then packed into the cavity draining. Patient tolerated the procedure well and was extubate preoperatively. She will be sent to the recovery room in stable condition. Estimated Blood Loss 5 Drains No Packing Yes Pathology None sent Complications No immediate complications Condition Stable Disposition PACU [facility] Billing Surgery - Charge Forward: Surgery Billing
--- NOTE | 2025-09-07 16:31 | ADMGEN ---
This patient, Merced Peña, was admitted to [facility] Surg Room 309-01. Patient/family oriented to hospital policies and general routines including ID bracelet, bed and alarms, visiting hours, pain management, procedures, bathroom and other care routines, personal items, smoking policy, room service/diet, and visiting hours. Information on how to activate the Rapid Response Team has been discussed. Patient/Family are encouraged to report perceived risks to care and to ask questions if they do not understand what they are told or what they should do.
[2025-09-07] MEDS: HYDROcodone/acetaminophen (*CRX) 5-325 MG TABLET 1 TAB PO (17:25)
[2025-09-07] MEDS: LACTATED RINGERS 1,000 ML 150 ML IV CONT (17:28)
[2025-09-08] MEDS: PIPERACILLIN/TAZOBACTAM SOD 3.375 GM in SODIUM CHLORIDE 0.9% IV 50 ML 100 ML IVPB ×4 (01:13→19:14)
[2025-09-08] MEDS: HYDROcodone/acetaminophen (*CRX) 5-325 MG TABLET 1 TAB PO ×4 (01:13→19:13)
[2025-09-08] MEDS: LACTATED RINGERS 1,000 ML 150 ML IV CONT (01:14)
[2025-09-08 04:46] VITALS: BP 89/60; PULSE 74; RESP 17; TEMP 36.3; O2SAT 98
[2025-09-08 05:21] VITALS: BP 112/58; PULSE 68
[2025-09-08 08:04] VITALS: BP 120/78
[2025-09-08 08:55] LABS: Hematocrit 33.0 % (37.0-47.0); Hemoglobin 10.7 g/dL (12.0-15.0); Mean Corpuscular HGB Conc 32.4 g/dl (32-36); Mean Corpuscular Hemoglobin 31.6 pg (26-34); Mean Corpuscular Volume 97.3 fl (80-100); Platelet Count Result 346 k/mm3 (150-375); Red Blood Count 3.39 M/mm3 (4.2-5.4); White Blood Count 16.5 K/mm3 (4.5-10.0)
[2025-09-08 09:12] LABS: Anion Gap 5 mmol/L (4-12); Blood Urea Nitrogen 7 mg/dL (7-17); Calcium 8.2 mg/dL (8.4-10.2); Carbon Dioxide 28 mmol/L (22-30); Chloride 102 mmol/L (98-107); Estimated CRCL calculation 105 ml/min; Estimated Glomerular Filt Rate > 60; Glucose 92 mg/dL (65-110); Potassium 3.5 mmol/L (3.4-5.0); Sodium 135 mmol/L (137-145)
[2025-09-08] MEDS: MORPHINE SULFATE (*CRX) 4 MG/ML INJ IV PUSH (11:42)
--- NOTE | 2025-09-08 12:34 | P.PNGS_ITS ---
Progress Note: A&P Assessment and Plan (1) Perianal abscess: Code(s): K61.0 - Anal abscess Status: Acute Assessment and Plan: * S/p I&D of a large perirectal abscess. Abscess is adequately drained. Repacked again today. Abscess cultures pending. * Continue IV antibiotics * Will plan to reassess tomorrow and hopefully discharge home (2) SIRS (systemic inflammatory response syndrome): Code(s): R65.10 - Systemic inflammatory response syndrome (SIRS) of non-infectious origin without acute organ dysfunction Status: Acute Assessment and Plan: * Improving s/p source control. Tachycardia resolved. No fevers. WBC count trending down. Will stop IV fluids. Cultures pending. (3) Vapes nicotine containing substance: Code(s): Z72.0 - Tobacco use Status: Acute Plan I have discussed the patient's case and plan of care with Dr. Richardson. Subjective Subjective Date/Time Seen: 09/08/25 12:34 Post Op day: 1 (I&D L perirectal abscess) Patient reports: feels better, pain is less and afebrile Interval history: Patient reports significant improvement in her perirectal pain and pressure. She is avoiding sitting on this area still as it is sore. No other complaints. Exam Narrative: Left perirectal incision with packing in place, packing was removed, no purulent drainage. Overall erythema and induration significantly improved. Incision repacked with iodoform packing and covered with gauze. Const: General: comfortable and no acute distress Orientation/consciousness: patient oriented x3 Objective Data Vital Signs Vital Signs: Vital Signs - 24 hr 09/07/25 13:32 09/07/25 14:22 09/07/25 15:18 Temperature 98.9 F 99.4 F 98.7 F Pulse Rate 100 121 H 121 H Respiratory Rate 15 16 25 H Blood Pressure 129/90 124/73 110/72 Pulse Oximetry 100 100 100 Oxygen Delivery Simple Face Mask Oxygen Flow Rate 8 09/07/25 15:30 09/07/25 15:35 09/07/25 15:50 Temperature Pulse Rate 109 H 109 H 115 H Respiratory Rate 21 H 21 H 17 Blood Pressure 112/67 112/67 111/72 Pulse Oximetry 100 100 98 Oxygen Delivery Simple Face Mask Room Air Room Air Oxygen Flow Rate 8 09/07/25 16:05 09/07/25 16:11 09/07/25 17:15 Temperature 99.4 F Pulse Rate 111 H 114 H 103 H Respiratory Rate 20 97 H 18 Blood Pressure 106/66 103/48 L 111/70 Pulse Oximetry 96 98 98 Oxygen Delivery Room Air Room Air Oxygen Flow Rate 09/07/25 17:30 09/07/25 18:53 09/07/25 21:17 Temperature 98.5 F 99.4 F 97.7 F Pulse Rate 110 H 98 112 H Respiratory Rate 18 20 17 Blood Pressure 120/75 122/85 117/92 H Pulse Oximetry 100 99 99 Oxygen Delivery Oxygen Flow Rate 09/08/25 04:46 09/08/25 05:21 09/08/25 07:55 Temperature 97.3 F L Pulse Rate 74 68 Respiratory Rate 17 Blood Pressure 89/60 L 112/58 L Pulse Oximetry 98 Oxygen Delivery Room Air Oxygen Flow Rate 09/08/25 08:04 Temperature Pulse Rate Respiratory Rate Blood Pressure 120/78 Pulse Oximetry Oxygen Delivery Oxygen Flow Rate Intake/Output Intake/Output: Intake & Output 09/05/25 09/06/25 09/07/25 09/08/25 23:59 23:59 23:59 23:59 Intake Total 440 1550 Balance 440 1550 Meds/Results Medications: Active Medications Generic Name Dose Route Start Last Admin Trade Name Freq PRN Reason Stop Dose Admin Acetaminophen 650 mg 09/07/25 13:11 Acetaminophen 325 Mg Tablet PO Q4H PRN Mild Pain (1-3) or Fever Hydrocodone Bitart/Acetaminophen 1 tab 09/07/25 16:14 09/08/25 12:06 Hydrocodone/Acetaminophen (*Crx) 5-325 Mg Tablet PO 1 tab Q4H PRN Administration Pain Rated 4-6 Lactated Ringer's 1,000 mls @ 150 mls/hr 09/07/25 13:30 09/08/25 01:14 Lr - Lactated Ringers Iv IV CONT 150 mls/hr .Q6H40M JEANA Administration Piperacillin Sod/Tazobactam 50 mls @ 100 mls/hr 09/07/25 20:00 09/08/25 08:27 Sod 3.375 gm/ Sodium Chloride IVPB Infused Q6H JEANA Infusion Morphine Sulfate 4 mg 09/07/25 13:11 09/08/25 11:42 Morphine Sulfate (*Crx) 4 Mg/Ml Inj IV PUSH 4 mg Q2H PRN Administration Pain Rated 7-10 Ondansetron HCl 4 mg 09/07/25 13:11 Ondansetron Inj 4 Mg/2 Ml Vial IV PUSH Q4H PRN Nausea Ondansetron HCl 4 mg 09/07/25 14:22 Ondansetron Inj 4 Mg/2 Ml Vial IV PUSH ONCE PRN Nausea Radiology Results: ITS Impressions Pelvis CT 09/07/25 11:42 IMPRESSION: 5.6 x 5.5 x 3.2 cm left perianal abscess with tiny foci of air which may represent gas-forming infection. Adjacent infiltrative changes consistent with accompanying cellulitis. Labs Labs: Laboratory Results - last 24 hr 09/08/25 08:31 WBC 16.5 H RBC 3.39 L Hgb 10.7 L Hct 33.0 L MCV 97.3 MCH 31.6 MCHC 32.4 RDW 12.2 Plt Count 346 MPV 8.8 Sodium 135 L Potassium 3.5 Chloride 102 Carbon Dioxide 28 Anion Gap 5 BUN 7 Creatinine 0.70 Estim Creat Clear Calc 105 Estimated GFR > 60 Glucose 92 Calcium 8.2 L
[2025-09-08 14:00] VITALS: BP 111/72; PULSE 106; RESP 16; TEMP 36.2; O2SAT 100
[2025-09-08 20:24] VITALS: BP 122/81; PULSE 98; RESP 18; TEMP 36.3; O2SAT 98
[2025-09-09] MEDS: PIPERACILLIN/TAZOBACTAM SOD 3.375 GM in SODIUM CHLORIDE 0.9% IV 50 ML 100 ML IVPB ×2 (01:26→09:28)
[2025-09-09] MEDS: HYDROcodone/acetaminophen (*CRX) 5-325 MG TABLET 1 TAB PO ×2 (01:56→09:27)
[2025-09-09 05:28] VITALS: BP 100/64; PULSE 80; RESP 18; TEMP 36.4; O2SAT 100
[2025-09-09 06:34] LABS: Hematocrit 32.5 % (37.0-47.0); Hemoglobin 10.4 g/dL (12.0-15.0); Mean Corpuscular HGB Conc 32.0 g/dl (32-36); Mean Corpuscular Hemoglobin 31.0 pg (26-34); Mean Corpuscular Volume 96.7 fl (80-100); Platelet Count Result 337 k/mm3 (150-375); Red Blood Count 3.36 M/mm3 (4.2-5.4); White Blood Count 10.4 K/mm3 (4.5-10.0)
[2025-09-09] MEDS: MORPHINE SULFATE (*CRX) 4 MG/ML INJ IV PUSH (10:05)
--- NOTE | 2025-09-09 15:03 | PM.DS ---
DS: Admitting Diagnosis Discharge Date 09/09/25 Admitting Diagnosis perianal abscess DS: Discharge Diagnosis Discharge Diagnosis (1) Perianal abscess: Code(s): K61.0 - Anal abscess Status: Acute (2) SIRS (systemic inflammatory response syndrome): Code(s): R65.10 - Systemic inflammatory response syndrome (SIRS) of non-infectious origin without acute organ dysfunction Status: Acute (3) Vapes nicotine containing substance: Code(s): Z72.0 - Tobacco use Status: Acute DS: Summary Hospital Course Reason for hospitalization: Patient presented to the hospital on 09/07/2025 with complaints of perirectal pain. She had 1st noticed a small lump on her left buttock about a month ago. It continued to grow in size and become painful. She saw her OBGYN who gave her Bactrim for a week. Unfortunately patient did not notice any improvement. She was then switched to amoxicillin, which she had been taking 3-4 days prior to arrival in the ED. Pain and swelling continued to worsen and she began to notice intermittent rectal drainage. She presented to the ED and workup included labs that revealed leukocytosis of 22,000. CT demonstrated 5.6 cm perianal abscess with tiny foci of air which may represent gas-forming infection and adjacent infiltrative changes consistent with accompanying cellulitis. Hospital Course: Patient was brought to the operating room on 09/07/2025 and underwent a rectal exam under anesthesia, complex incision and drainage of left perirectal abscess measuring 6 x 5 x 10 cm. The cavity was packed with 1 in iodoform gauze. Patient tolerated the procedure well and she was extubated and sent to the recovery room in stable condition. She was then sent up to medical surgical floor for further monitoring. The following morning, patient's white blood cell count had decreased to 16.5. She had no acute complications overnight. The wound was repacked at the bedside. Abscess cultures still pending. IV antibiotics were continued. Patient continued to do well overnight and on the morning of discharge 09/09/2025, the wound was again repacked. WBC continued to trend towards normal at 10.4. Patient voiding appropriately. Surgically stable for discharge with oral antibiotics and instructions for follow-up. Status at Discharge Functional status at discharge: independent ambulation Overall status at discharge: patient is back to baseline Time Spent with Patient Time attestation: Total time spent providing and/or coordinating discharge services: Time spent: Less than 30 minutes Exam Narrative: Left perirectal incision with packing in place, packing was removed, no purulent drainage. Overall erythema and induration significantly improved. Incision repacked with iodoform packing and covered with gauze. Const: General: comfortable and no acute distress Eyes: General: appearance normal, both eyes and all related structures Neck: Neck: supple Resp: Effort & Inspection: normal respiratory effort Cardio: Rate: regular rate Skin: General skin exam: normal color and no rashes or lesions noted Neuro: Sensory Exam: normal sensation Extrem: General: normal to inspection Psych: Mental Status: mental status grossly normal DS: Data Data Completed and Pending Labs on day of discharge: Labs from last 24 hours 09/09/25 05:55 WBC 10.4 H RBC 3.36 L Hgb 10.4 L Hct 32.5 L MCV 96.7 MCH 31.0 MCHC 32.0 RDW 12.0 Plt Count 337 MPV 8.8 Procedures/Treatments: Procedures Operation Date: 09/07/25 14:45 Actual Procedure Side Surgeon p Incision And Drainage Devika-Rectal Abscess Not Applicable Terese Richardson MD Imaging Radiologist's impression: ITS Impressions Pelvis CT 09/07/25 11:42 IMPRESSION: 5.6 x 5.5 x 3.2 cm left perianal abscess with tiny foci of air which may represent gas-forming infection. Adjacent infiltrative changes consistent with accompanying cellulitis. Discharge Plan Discharge Attending physician on discharge: Terese Richardson Consulting providers: Rita Lackey Discharging Clinician: Ivis William Anticipated Discharge Date/Time: 09/09/25 11:30 Patient Disposition: Home Activity: may shower Diet: regular Wound Care Instructions: follow printed instructions Discharge Instructions: Remove packing from abscess in 24 hrs. Ok to shower at this time and rinse over the area with mild soap and water. Keep the area clean and dry. Gently wash after bowel movements and pat dry. Cover with gauze to protect clothing from any drainage. Prescription medication sent to pharmacy. Please pick this up and take as prescribed. Take Tylenol and ibuprofen for pain 2-3 times daily as neded. If no bowel movement by tomorrow, consider taking Miralax or a daily stool softener. Drink plenty of water to avoid constipation. Resume normal activities as tolerated. Work note will be provided. Call the general surgery office at to schedule a follow up appointment in 2 weeks. Call sooner with any questions or concerns. Call general surgery office or go to the emergency department if you develop any: new or worsening pain, fever over 101 degrees, spreading redness or sswelling, peristent or increasing drainage, difficulty passing stool or urine. Patient Instructions: Antibiotic Form, Abscess Incision and Drainage (DC) Patient Language: Tajik Stand Alone Forms: General Discharge Information, Work/School Release IP Follow-up/Referrals: Terese Richardson MD [Physician, General Surgery] - Call for Appointment Referral Note: 2 weeks Discharge Medications: New hydrocodone-acetaminophen 5-325 mg Tablet 1 tablet PO Q4H PRN (Reason: Pain Rated 4-6) Qty: 3 0RF ciprofloxacin HCl 500 mg tablet 500 mg PO Q12H Qty: 14 0RF metronidazole 500 mg tablet 500 mg PO Q8H Qty: 21 0RF Date of admission: 09/07/25 17:34 Primary Care Provider: UNKNOWN,DOCTOR Admitting Provider: Terese Richardson Attending physician on admission: Terese Richardson Condition: Stable
== END 2025-09-09 12:55 | disposition home or self-care (01) | DRG 345 ==
LOC: ANHED 14:17 → ANH3MEDSUR 14:25
PROVIDERS: Nurse Practitioner Family; Admitting Provider Surgery; Emergency Provider Physician Assistant
PROC: 0D9P0ZX Drainage of Rectum, Open Approach, Diagnostic (ICD-10-PCS; CPT 46040; principal; 2025-09-07 14:45)
DX: K61.1 Rectal abscess (principal); R65.10 Systemic inflammatory response syndrome (SIRS) of non-infectious origin without acute organ dysfunction; E66.9 Obesity, unspecified; F17.290 Nicotine dependence, other tobacco product, uncomplicated; K58.9 Irritable bowel syndrome, unspecified; Z68.30 Body mass index [BMI] 30.0-30.9, adult
CPT/HCPCS: 36415; 72193; 80048; 80053; 81025; 83605; 85025; 85027; 85610; 85730; 86140; 87040; 87070; 87075; 87186; 87205; 96361; 96365; 96367; 96375; 96376; 99285; A9270; G0378; J0330; J0696; J1200; J2003; J2270; J2405; J2543; J2704; J3010; J7120; Q9967